=== PATIENT | male | born 1980 ===

== ENCOUNTER 2020-08-07 07:12 | Outpatient (CLI) | payer OTHER ==
--- NOTE | 2020-08-07 11:47 | Ultrasound Report ---
SCROTAL ULTRASOUND WITH DOPPLER HISTORY: MASS LEFT SCROTUM COMPARISON: None. TECHNIQUE: Grayscale, color and spectral Doppler images were obtained of the scrotum. FINDINGS: RIGHT: Right testicle: No significant abnormality. No mass. Right testicular size: 4.1 x 2.6 x 2.6 cm. Right epididymis: No significant abnormality. LEFT: Left testicle: No significant abnormality. No mass. Left testicular size: 4.0 x 2.2 x 2.9 cm. Left epididymis: No significant abnormality. Spectral Doppler waveforms demonstrate symmetric arterial flow to both testes. Additional findings: Along the inferior border of the scrotal sac, there is a hypoechoic slightly het erogeneous mass measuring 2.5 x 1.3 x 2.0 cm. This appears to be within the scrotal skin. It does not appear to be connected with the testes or epididymides. Color Doppler interrogation demonstrates int ernal flow to this structure. IMPRESSION: A complex 2.5 x 1.3 x 2.0 cm masslike lesion is identified in the scrotal skin inferiorly. 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 The etiology of this is unclear but they are often mes enchymal masses in origin and likely benign. Please correlate with the patient's clinical presentatio n. Consider MRI with contrast if further evaluation is needed. Urology consult may prove useful if no t are obtained. Signer Name: Deny Collier Jr, MD Signed: 08/07/2020 9:08 AM Workstation Name: [id number]
== END 2020-08-07 07:13 | disposition home or self-care (01) ==
LOC: US 07:12
PROVIDERS: ATTEND Internal Medicine
DX: N50.89 Other specified disorders of the male genital organs (principal)
CPT/HCPCS: 93975